=== PATIENT | female | born 2000 | race Caucasian/White ===

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

== ENCOUNTER 2022-04-18 13:15 | Emergency (ER) | payer SELFPAY ==
[~2022-04-18] VITALS: Ht 165.1 cm; Wt 60.9 kg
[~2022-04-18 13:15] MED LIST: PROZAC 20MG20 MG PO
[2022-04-18 14:28] LABS: COLLECTION METHOD CLEAN CATCH
[2022-04-18 14:44] LABS: TRICYCLIC ANTIDEPRESS URINE NEGATIVE
[2022-04-18 14:45] LABS: BASO % 0.4 % (0.0-2.0); EOS # 0.1 K/mm3 (0.0-0.7); EOS % 0.9 % (0.0-4.0); GRAN # 5.4 K/mm3 (1.4-6.5); GRAN % 71.7 % (42.2-75.2); HEMOGLOBIN 12.8 g/dl (12.0-15.0); LYMPH # 1.5 K/mm3 (1.2-3.4); LYMPH % 20.3 % (20.0-51.0); MEAN CELL VOLUME 87 fl (80.0-95.0); MEAN CORPUSCULAR HEMOGLOBIN 28 pg (26-32); MEAN CORPUSCULAR HGB CONC 33 g/dl (33.0-37.0); MEAN PLATELET VOLUME 9.8 fl (7.4-10.4); MONO # 0.5 K/mm3 (0.1-0.6); MONO % 6.6 % (1.7-9.3); PLATELET COUNT 257 K/mm3 (130-400); RED BLOOD COUNT 4.51 M/mm3 (4.10-5.30); REDCELL DISTRIBUTION WIDTH-CV 12.9 % (11.5-14.5)
[2022-04-18 15:01] LABS: MUCOUS Present (NOT PRESENT); SQUAMOUS EPITHELIAL 0-2 /hpf (0-10); URINE BACTERIA None Seen /hpf (NONE SEEN)
[2022-04-18 15:04] LABS: URINE APPEARANCE Clear (CLEAR/HAZY); URINE COLOR Yellow (YELLOW); URINE GLUCOSE Negative (NEGATIVE); URINE KETONE Negative (NEGATIVE); URINE PROTEIN(semi-quant) Negative (NEGATIVE)
[2022-04-18 15:05] LABS: URINE BLOOD TRACE-INTACT (NEGATIVE); URINE NITRATE Negative (NEGATIVE); URINE UROBILINOGEN 0.2 E.U/dL (0.2-1.0)
[2022-04-18 15:06] LABS: ALANINE AMINOTRANSFERASE 8 U/L (0-55); ALBUMIN 4.8 gm/dL (3.5-5.0); ALKALINE PHOSPHATASE 56 U/L (40-150); ANION GAP 10 mmol/L (7-16); AST,SGOT 16 U/L (5-34); BILIRUBIN,TOTAL 0.5 mg/dL (0.2-1.2); BLOOD UREA NITROGEN 7 mg/dL (8-21); CALCIUM 9.4 mg/dL (8.4-10.2); CARBON DIOXIDE 25 mmol/L (22-29); CHLORIDE 107 mmol/L (98-107); CREATININE, serum 0.81 mg/dL (0.57-1.11); GLUCOSE 96 mg/dL (70-99); POTASSIUM 3.7 mmol/L (3.5-4.5); SODIUM 142 mmol/L (136-145); TOTAL PROTEIN 7.6 gm/dL (6.2-8.1)
[2022-04-18 15:07] LABS: ACETAMINOPHEN < 1.0 ug/mL (10-30); ALCOHOL(ethanol),MEDICAL < 10 mg/dL (0-10); SALICYLATE < 5.0 mg/dL (15.0-30.0)
[2022-04-18] MEDS ORDERED: NEURONTIN100 MG/CAP PO (15:07)
[2022-04-18] MEDS ORDERED: REVIA 50MG TABL50 MG PO (15:07)
[2022-04-18] MEDS ORDERED: GEODON 40MG40 MG PO (15:07)
[2022-04-18] MEDS ORDERED: REMERON30 MG PO (15:07)
[2022-04-18] MEDS ORDERED: MINIPRESS 1M1 MG/CAP PO (15:08)
[2022-04-18] MEDS ORDERED: MELATIN 3 MG-11 TAB PO (15:09)
[2022-04-18] MEDS ORDERED: VITAMIND3 5000 PO (15:09)
[2022-04-18] MEDS ORDERED: GEODON 20 MG20 MG PO (15:09)
[2022-04-19 07:48] VITALS: BP 128/64; PULSE 89; TEMP 98.8
== END 2022-04-19 07:53 ==
LOC: COL.ER 13:15
PROVIDERS: Emergency Medicine
DX: R45.851 Suicidal ideations (principal); Z20.822 Contact with and (suspected) exposure to COVID-19; Z28.310 Unvaccinated for COVID-19